=== PATIENT | male | born 1985 | race Caucasian/White ===

== ENCOUNTER 2018-10-13 23:53 | Emergency (ER) | payer BC, SELFPAY ==
--- NOTE | 2018-10-14 01:14 | ER ---
Nurse's Notes [facility] Name: Martin Robertson Age: 33 yrs Sex: Male : 1985 Arrival Date: 10/13/2018 Time: 23:56 Bed 25 Private MD: Diagnosis: Hemorrhoids and perianal venous thrombosis Presentation: 10/14 00:09 Presenting complaint: Patient states: I have a tender knot right at the opening of my kr2 anus, I have had something similar in the past and it was a staph infection, its not draining or anything but very tender. Transition of care: patient was not received from another setting of care. Onset of symptoms was October 11, 2018. Risk Assessment: Do you want to hurt yourself or someone else? Patient reports no desire to harm self or others. Initial Sepsis Screen: Does the patient meet any 2 criteria? No. Patient's initial sepsis screen is negative. Does the patient have a suspected source of infection? No. Patient's initial sepsis screen is negative. Care prior to arrival: None. 00:09 Method Of Arrival: Ambulatory kr2 00:09 Acuity: INÉS 4 kr2 Triage Assessment: 00:12 General: Appears in no apparent distress. comfortable, slender, well developed, well kr2 nourished, Behavior is calm, cooperative, appropriate for age. Pain: Complains of pain in gluteal cleft Pain does not radiate. Pain currently is 3 out of 10 on a pain scale. Quality of pain is described as tender, Is continuous, Alleviated by repositioning. Neuro: Level of Consciousness is awake, alert, obeys commands, Oriented to person, place, time, situation. Cardiovascular: Capillary refill < 3 seconds in bilateral fingers Patient's skin is warm and dry. Respiratory: Airway is patent Respiratory effort is even, unlabored, Respiratory pattern is regular, symmetrical. GI: Abdomen is flat, non-distended, Reports tender raised knot near anus Patient currently denies nausea, vomiting. Derm: Skin is intact, is healthy with good turgor, exam of area of complaint deferred until provider exam as requested by patient. Musculoskeletal: Circulation, motion, and sensation intact. Historical: - Allergies: 00:11 No Known Allergies; kr2 - Home Meds: 00:11 None [Active]; kr2 - PMHx: 00:11 None; kr2 - PSHx: 00:11 None; kr2 - Immunization history:: Adult Immunizations up to date. - Social history:: Smoking status: Patient uses tobacco products, smokes one pack cigarettes per day. - Ebola Screening: : No symptoms or risks identified at this time. Screenin:16 Abuse screen: Denies threats or abuse. Denies injuries from another. Nutritional kr2 screening: No deficits noted. Tuberculosis screening: No symptoms or risk factors identified. Fall Risk None identified. Vital Signs: 00:14 BP 127 / 86; Pulse 81; Resp 18; Temp 98.2; Pulse Ox 100% ; Weight 79.38 kg; Height 6 kr2 ft. (182.88 cm); Pain 3/10; 00:14 Body Mass Index 23.73 (79.38 kg, 182.88 cm) kr2 ED Course: 10/13 23:56 Patient arrived in ED. 10/14 00:10 Triage completed. kr2 00:11 Randall Rehman PA is PHCP. [facility] 00:11 Nicolas Cheatham MD is Attending Physician. [facility] 00:16 Arm band placed on left wrist. kr2 00:16 Patient has correct armband on for positive identification. Bed in low position. Call kr2 light in reach. Side rails up X 1. Pulse ox on. NIBP on. Door closed. Head of bed elevated. 01:12 Jonathan Lama MD is Referral Physician. [facility] 01:13 Mac Coffey MD is Referral Physician. [facility] 01:22 No provider procedures requiring assistance completed. Patient did not have IV access ls4 during this emergency room visit. Administered Medications: 01:17 Not Given (Duplicate Order): Marcaine (0.5 %) 10 ml 10 ml Infiltration once ls4 01:17 Not Given (Duplicate Order): [place] 10 mg-325 mg 1 tabs PO once ls4 Outcome: 01:14 Discharge ordered by . [facility] 01:22 Condition: stable ls4 01:43 Patient left the ED. ls4 Signatures: Randall Rehman PA PA jmm Salyer, Edna es Reaves, Karey, RN RN kr2 Rayna Whittington RN RN ls4
--- NOTE | 2018-10-14 01:14 | EDPHYS ---
Physician Documentation [facility] Name: Martin Robertson Age: 33 yrs Sex: Male : 1985 Arrival Date: 10/13/2018 Time: 23:56 Bed 25 Private MD: ED Physician Nicolas Cheatham HPI: 10/14 00:41 This 33 yrs old Male presents to ER via Ambulatory with complaints of jmm Possible staph infection. 00:41 The patient presents with an abscess of the buttocks. Onset: The symptoms/episode jmm began/occurred gradually, 2 day(s) ago. Possible cause(s): unknown. Associated signs and symptoms: Pertinent positives: swelling, Pertinent negatives: fever. This is a 33 year old male with no chronic medical conditions that presents to the ED with swelling around his anus beginning approx 2 days ago which has increased in size. patient denies fever. . Historical: - Allergies: 00:11 No Known Allergies; kr2 - Home Meds: 00:11 None [Active]; kr2 - PMHx: 00:11 None; kr2 - PSHx: 00:11 None; kr2 - Immunization history:: Adult Immunizations up to date. - Social history:: Smoking status: Patient uses tobacco products, smokes one pack cigarettes per day. - Ebola Screening: : No symptoms or risks identified at this time. ROS: 00:41 Constitutional: Negative for fever, chills, and weight loss, Cardiovascular: Negative jmm for chest pain, palpitations, and edema, Respiratory: Negative for shortness of breath, cough, wheezing, and pleuritic chest pain. 00:41 Skin: Positive for swelling. 00:41 All other systems are negative. Exam: 01:10 Constitutional: This is a well developed, well nourished patient who is awake, alert, jmm and in no acute distress. Head/Face: atraumatic. Eyes: EOMI, no conjunctival erythema appreciated ENT: Moist Mucus Membranes Neck: Trachea midline, Supple Chest/axilla: Normal chest wall appearance and motion. Cardiovascular: Regular rate and rhythm. No edema appreciated Respiratory: Normal respirations, no respiratory distress appreciated 01:10 Back: Normal ROM Skin: General appearance color normal MS/ Extremity: Moves all extremities, no obvious deformities appreciated, no edema noted to the lower extremities Neuro: Awake and alert, normal gait 01:10 Abdomen/GI: Rectal exam: hemorrhoid(s), external, with thrombosis. Vital Signs: 00:14 BP 127 / 86; Pulse 81; Resp 18; Temp 98.2; Pulse Ox 100% ; Weight 79.38 kg; Height 6 kr2 ft. (182.88 cm); Pain 3/10; 00:14 Body Mass Index 23.73 (79.38 kg, 182.88 cm) kr2 MDM: 00:40 Patient medically screened. [facility] 01:10 Data reviewed: vital signs, nurses notes. Counseling: I had a detailed discussion with billy the patient and/or guardian regarding: the historical points, exam findings, and any diagnostic results supporting the discharge/admit diagnosis, the need for outpatient follow up, to return to the emergency department if symptoms worsen or persist or if there are any questions or concerns that arise at home. ED course: PE findings consistent with hemorrhoid. Patient is given follow up for GI/General surgery along with return precautions. . Administered Medications: 01:17 Not Given (Duplicate Order): Marcaine (0.5 %) 10 ml 10 ml Infiltration once ls4 01:17 Not Given (Duplicate Order): [place] 10 mg-325 mg 1 tabs PO once ls4 Disposition: 05:16 Co-signature as Attending Physician, Nicolas Cheatham MD I agree with the assessment and tw4 plan of care. Disposition: 10/14/18 01:14 Discharged to Home. Impression: Hemorrhoids and perianal venous thrombosis. - Condition is Stable. - Discharge Instructions: Hemorrhoids. - Prescriptions for Anusol- HC 2.5 % Rectal Cream - Apply to affected area 1 application by TOPICAL route every 8 hours As needed; 30 gram. Colace 100 mg Oral Tablet - take 1 tablet by ORAL route every 12 hours; 14 tablet. - Medication Reconciliation Form, Thank You Letter, Antibiotic Education, Prescription Opioid Use form. - Follow up: Jonathan Lama MD; When: 2 - 3 days; Reason: Recheck today's complaints, Continuance of care, Re-evaluation by your physician. Follow up: Mac Coffey MD; When: 2 - 3 days; Reason: Recheck today's complaints, Continuance of care, Re-evaluation by your physician. Signatures: Randall Rehman PA PA jmm Reaves, Karey, RN RN kr2 Nicolas Cheatham MD MD tw4 Rayna Whittington, RN RN ls4 Corrections: (The following items were deleted from the chart) 01:43 01:14 10/14/2018 01:14 Discharged to Home. Impression: Hemorrhoids and perianal venous ls4 thrombosis. Condition is Stable. Forms are Medication Reconciliation Form, Thank You Letter, Antibiotic Education, Prescription Opioid Use. Follow up: Jonathan Lama; When: 2 - 3 days; Reason: Recheck today's complaints, Continuance of care, Re-evaluation by your physician. Follow up: Mac Coffey; When: 2 - 3 days; Reason: Recheck today's complaints, Continuance of care, Re-evaluation by your physician. billy
== END 2018-10-14 01:43 | disposition home or self-care (01) ==
LOC: ER 23:53
DX: K64.5 Perianal venous thrombosis (principal); F17.210 Nicotine dependence, cigarettes, uncomplicated
CPT/HCPCS: 99283